=== PATIENT | male | born 1990 | race Caucasian/White ===

== ENCOUNTER 2017-02-15 03:45 | Emergency (ER) | payer OTHER, BC ==
[~2017-02-15] VITALS: Ht 182.9 cm; Wt 80.9 kg
[2017-02-15 03:49] VITALS: TEMP 97.9
[2017-02-15] MEDS ORDERED: TYLENOL W/COD1 UDTAB PO (05:24)
[2017-02-15] MEDS ORDERED: CEPHALEXIN500 M1 PO (05:24)
[2017-02-15 05:55] VITALS: BP 130/74; PULSE 84
== END 2017-02-15 05:57 | disposition home or self-care (01) ==
LOC: COL.ER 03:45
DX: S01.81XA Laceration without foreign body of other part of head, initial encounter (principal); W01.190A Fall on same level from slipping, tripping and stumbling with subsequent striking against furniture, initial encounter; Y92.000 Kitchen of unspecified non-institutional (private) residence as the place of occurrence of the external cause

== ENCOUNTER 2017-03-01 14:50 | Emergency (ER) | payer OTHER, BC ==
[~2017-03-01 14:50] MED LIST: CEPHALEXIN500 M1 PO; TYLENOL W/COD1 UDTAB PO
[2017-03-01 15:01] VITALS: BP 118/72; PULSE 70; TEMP 98
== END 2017-03-01 15:14 | disposition home or self-care (01) ==
LOC: COL.ER 14:50
DX: Z48.02 Encounter for removal of sutures (principal)

== ENCOUNTER 2019-07-20 00:25 | Emergency (ER) | payer SELFPAY ==
[~2019-07-20] VITALS: Ht 188 cm; Wt 84.5 kg
[2019-07-20 00:28] VITALS: TEMP 96.5
[2019-07-20 00:47] LABS: BASO # 0.1 (0.0-0.2); BASO % 0.5 % (0.0-2.0); EOS # 0.2 (0.0-0.7); EOS % 2.1 % (0-4.0); GRAN # 5.8 (1.4-6.5); GRAN % 61.1 % (42.2-75.2); HEMATOCRIT 47.6 % (42.0-52.0); HEMOGLOBIN 16.3 g/dl (13.5-18.0); LYMPH # 2.5 (1.2-3.4); LYMPH % 26.5 % (20.0-51.0); MEAN CELL VOLUME 87 fl (80.0-100.0); MEAN CORPUSCULAR HEMOGLOBIN 30 pg (27.0-31.0); MEAN CORPUSCULAR HGB CONC 34 g/dl (33.0-37.0); MEAN PLATELET VOLUME 9.8 fl (7.4-10.4); MONO # 0.9 (0.1-0.6); MONO % 9.4 % (1.7-9.3); PLATELET COUNT 303 K/mm3 (130-400); RED BLOOD COUNT 5.45 M/mm3 (4.20-5.60); REDCELL DISTRIBUTION WIDTH-CV 12.4 % (11.5-14.5)
[2019-07-20 00:59] LABS: ALBUMIN 4.9 gm/dL (3.5-5.0); BILIRUBIN,TOTAL 0.3 mg/dL (0.0-1.0); CALCIUM 8.9 mg/dL (8.4-10.2); CREATININE, serum 1.4 (0.66-1.25); POTASSIUM 4.3 mmol/L (3.4-5.0); TOTAL PROTEIN 8.6 gm/dL (6.4-8.2)
[2019-07-20 06:45] VITALS: BP 116/74; PULSE 96
== END 2019-07-20 06:45 | disposition home or self-care (01) ==
LOC: COL.ER 00:25
PROVIDERS: Emergency Medicine
DX: F10.129 Alcohol abuse with intoxication, unspecified (principal); Y90.8 Blood alcohol level of 240 mg/100 ml or more
CPT/HCPCS: J1630; J2405; J7030